=== PATIENT | female | born 1965 | race Caucasian/White ===

== ENCOUNTER → 2016-08-21 | Outpatient (CLI) | payer MEDICAID ==
[2016-08-21 14:46] LABS: AMPHETAMINES/METAMPHETAMINES NEGATIVE ng/mL (<1000)
[2016-08-30 20:36] LABS: Opiates Negative ng/mL (Cutoff=100)
== END ==
LOC: LAB 13:53
PROVIDERS: Emergency Medicine; Nurse Practitioner Family
DX: Z79.899 Other long term (current) drug therapy (principal)